=== PATIENT | female | born 1975 | race Caucasian/White ===

== ENCOUNTER 2016-12-25 05:51 | Observation (INO) | payer OTHER ==
[~2016-12-25] VITALS: Ht 162.6 cm; Wt 87.3 kg
[2016-12-25 06:39] VITALS: BP 142/76; PULSE 90; RESP 20; TEMP 98.3; O2SAT 98
[2016-12-25] MEDS: LACTATED RINGER'S 1000 ML IV SCH (06:40)
[2016-12-25] MEDS ORDERED: INSULIN HUMAN REGULAR 1,000 UNITS/10 ML VIAL SQ PRN (07:00)
[2016-12-25] MEDS: SODIUM CHLORID 0.9% 500 ML IV SCH ×2 (07:00→23:40)
[2016-12-25] MEDS ORDERED: METOPROLOL TARTRATE 25 MG TAB PO PRN (07:00)
[2016-12-25] MEDS ORDERED: BUPIVACAINE HCL PF 0.5% 30 ML VIAL ONE (07:02)
[2016-12-25 07:03] LABS: AUTOMATED NEUTROPHIL # 3.1 TH/MM3 (1.8-7.7); BASOPHIL % 0.6 % (0.0-2.0); EOSINOPHIL # 0.1 TH/MM3 (0-0.4); EOSINOPHIL % 2.5 % (0.0-4.0); HEMATOCRIT 34.1 % (35.0-46.0); HEMO FLAGS AUTO DIFF; LYMPH % 31.9 % (9.0-44.0); LYMPHOCYTE # 1.7 TH/MM3 (1.0-4.8); MEAN CELL VOLUME 61.4 FL (80.0-100.0); MEAN CORPUSCULAR HEMOGLOBIN 19.5 PG (27.0-34.0); MEAN CORPUSCULAR HGB CONC 31.7 % (32.0-36.0); MONO % 7.9 % (0.0-8.0); NEUT % 57.1 % (16.0-70.0); PLATELET COUNT 240 TH/MM3 (150-450); RED BLOOD COUNT 5.55 MIL/MM3 (4.00-5.30); RED CELL DISTRIBUTION WIDTH 15.3 % (11.6-17.2); WHITE BLOOD COUNT 5.3 TH/MM3 (4.0-11.0)
[2016-12-25 07:20] LABS: BETA HCG QUANT LESS THAN 1 MIU/ML (0-5)
[2016-12-25 07:42] LABS: OVALOCYTES 1+ (NORMAL); SCAN/DIFF AUTO DIFF CONFIRMED; TEARDROP RBCS 1+ (NORMAL)
[2016-12-25] MEDS ORDERED: oxyCODONE/ACETAMINOPHEN 5 MG/325 MG TAB PO PRN ×2 (08:00)
[2016-12-25] MEDS ORDERED: HYDROmorphone HCL PF 1 MG/ML VIAL IVP PRN (08:00)
[2016-12-25] MEDS ORDERED: ONDANSETRON HCL 4 MG/2 ML VIAL IVP PRN (08:00)
[2016-12-25] MEDS ORDERED: ceFAZolin INJ 1,000 MG VIAL IV ONE (08:18)
[2016-12-25] MEDS: SODIUM CHLORIDE 0.9% FLUSH 5 ML FLUSH FLUSH SCH ×2 (09:00→21:00)
[2016-12-25] MEDS ORDERED: HYDROmorphone HCL PF 2 MG/ML VIAL ONE (09:38)
[2016-12-25] MEDS ORDERED: DO NOT ADM ANY ANTICOAGULANT DRUGS XX PRN (10:21)
[2016-12-25] MEDS ORDERED: MIDAZOLAM HCL 2 MG/2 ML VIAL ONE (10:27)
[2016-12-25] MEDS ORDERED: fentaNYL CITRATE 250 MCG/5 ML AMP ONE (10:28)
[2016-12-25] MEDS: KETOROLAC TROMETHAMINE 30 MG/ML (IVP) VIAL IVP PRN (10:54)
[2016-12-25] MEDS: LACTATED RINGER'S 1000 ML INJ 1,000 ML IV SCH ×2 (10:54→15:58)
[2016-12-25 12:00] VITALS: BP 126/79; PULSE 94; RESP 18; TEMP 97.2; O2SAT 100
[2016-12-25] MEDS ORDERED: LACTATED RINGER'S 1000 ML INJ 1,000 ML IV ONE (12:00)
[2016-12-25] MEDS ORDERED: NEOSTIGMINE 3 MG/3 ML SYR IV ONE (12:00)
[2016-12-25] MEDS ORDERED: PROPOFOL 200 MG/20 ML AMP IV ONE (12:00)
[2016-12-25] MEDS ORDERED: ONDANSETRON HCL 4 MG/2 ML VIAL IV PUSH ONE (12:00)
--- NOTE | 2016-12-25 14:41 | MP ---
cc: JACQUELIN OBREGON M.D. DATE OF SURGERY: 12/25/2016 PREOPERATIVE DIAGNOSIS Menorrhagia refractory to medical management. POSTOPERATIVE DIAGNOSIS 1. Menorrhagia refractory to medical management. 2. Pelvic adhesive disease. OPERATING SURGEON Dr. Jacquelin Obregon ANESTHESIA General endotracheal. PROCEDURE PERFORMED Laparoscopic-assisted supracervical hysterectomy, bilateral salpingectomy and lysis of adhesions. FINDINGS Findings in surgery included the omentum adhered to the anterior abdominal wall from the umbilicus down to the suprapubic region, normal-appearing tubes and ovaries bilaterally. Normal-appearing cul-de-sac. A slightly enlarged uterus with small fibroids. ESTIMATED BLOOD LOSS 100 cc. COMPLICATIONS None. PROCEDURE IN DETAIL After proper consents were obtained, the patient was taken to the operating room where general endotracheal anesthesia was applied. She was then placed in the dorsal position, sterilely prepped and draped and a Thompson catheter was placed in the sterile condition. We went ahead and placed lidocaine with epinephrine solution in the umbilicus. We made a 5 mm incision in the umbilicus and placed a 5 mm trocar under direct visualization into the abdominopelvic cavity. We insufflated to an adequate level of pneumoperitoneum. Inspection revealed a large omental adhesion really from the umbilicus down to the suprapubic area. I was able to visualize the right pelvic sidewall so we went ahead and placed a 5 mm port in the right lower quadrant midaxillary line without difficulty. We then were able to use our EnSeal device and come up and take down the omental adhesion without any bleeding and with good separation of the tissue. Now we were able to easily identify the rest of the pelvis and abdominal cavity. We went ahead and placed a 10-12 trocar in the left lower quadrant midaxillary line without difficulty. We then went ahead and came across the left tube it from the mesosalpinx and then coming through the uteroovarian ligament and the round ligament and then developing the bladder flap anteriorly from the left. We then did the same procedure on the right taking the tube off of the right ovary using the EnSeal device through the mesosalpinx across the round ligament across the uteroovarian ligament. We did finished developing the bladder flap anteriorly. There were some adhesions of the bladder to the anterior uterine surface which we were able to take down sharply using the Harmonic scalpel. At this time we came across the uterines on each side using the EnSeal device with good hemostasis noted. We then amputated the cervix using the Harmonic scalpel. The amputation went nicely. There was no bleeding. We then went ahead and placed the morcellator in through the 10-12 trocar site and we morcellated out the uterus, the tubes and part of the cervix. We picked up any remaining remnants. We irrigated the abdominopelvic cavity copiously. Hemostasis was noted. We overlaid the cervix using Interceed. We then went ahead and closed the 10-12 trocar site using the Johan-Dilcia device using 0 Vicryl suture with good closure noted. We then desufflated the abdomen and closed the skin incisions with a 4-0 Monocryl. Counts were correct and the patient was stable to the recovery room. MD MARGARITA Goodman/BT /1:19 PM /2:29 PM
[2016-12-25 16:00] VITALS: BP 127/57; PULSE 99; RESP 18; TEMP 98.1; O2SAT 97
[2016-12-25 20:02] VITALS: BP 126/70; PULSE 104; RESP 16; TEMP 98.7; O2SAT 96
[2016-12-26 00:02] VITALS: BP 137/72; PULSE 101; RESP 18; TEMP 98.5; O2SAT 98
[2016-12-26] MEDS: KETOROLAC TROMETHAMINE 30 MG/ML (IVP) VIAL IVP PRN ×2 (00:11→06:45)
[2016-12-26] MEDS: SODIUM CHLORIDE 0.9% FLUSH 5 ML FLUSH FLUSH PRN ×2 (00:11→06:45)
[2016-12-26] MEDS: LACTATED RINGER'S 1000 ML IV SCH (00:23)
[2016-12-26] MEDS: LACTATED RINGER'S 1000 ML INJ 1,000 ML IV SCH (00:23)
[2016-12-26 04:30] VITALS: BP 117/57; PULSE 96; RESP 16; TEMP 97.8; O2SAT 97
[2016-12-26 07:46] LABS: BASOPHIL % 0.3 % (0.0-2.0); EOSINOPHIL # 0.1 TH/MM3 (0-0.4); EOSINOPHIL % 0.9 % (0.0-4.0); LYMPH % 25.5 % (9.0-44.0); MEAN CELL VOLUME 61.7 FL (80.0-100.0); MEAN CORPUSCULAR HEMOGLOBIN 19.7 PG (27.0-34.0); MEAN CORPUSCULAR HGB CONC 31.9 % (32.0-36.0); NEUT % 65.3 % (16.0-70.0); PLATELET COUNT 219 TH/MM3 (150-450); WHITE BLOOD COUNT 7.7 TH/MM3 (4.0-11.0)
[2016-12-26 07:56] LABS: HEMO FLAGS AUTO DIFF
[2016-12-26 08:00] VITALS: BP 109/60; PULSE 62; RESP 18; TEMP 96.2; O2SAT 97
[2016-12-26 09:09] LABS: SCAN/DIFF AUTO DIFF CONFIRMED
[2016-12-26 12:00] VITALS: BP 118/68; PULSE 86; RESP 18; TEMP 97.4; O2SAT 98
== END 2016-12-26 13:24 | disposition home or self-care (01) ==
LOC: HSDC 05:51 → HSDI 08:02 → HOCA 11:26
PROVIDERS: ADMIT Obstetrics & Gynecology; ATTEND Obstetrics & Gynecology
DX: N92.0 Excessive and frequent menstruation with regular cycle (principal); D25.9 Leiomyoma of uterus, unspecified; N73.6 Female pelvic peritoneal adhesions (postinfective); N80.0 Endometriosis of uterus
CPT/HCPCS: 00840; 58542; 84702; 85025; 88307; 94150; C1765; G0378; J0690; J1170; J1885; J2250; J2405; J2710; J3010; J7120